=== PATIENT | female | born 2000 | race American Indian/Alaskan Native ===

== ENCOUNTER 2021-03-24 12:39 | Emergency (ER) | payer SELFPAY ==
[2021-03-24] MEDS ORDERED: IBUPROFEN 800 MG TAB PO ONE (13:10)
--- NOTE | 2021-03-24 13:20 | Emergency Department Report ---
ED General Adult HPI - General Chief complaint: Pain General Stated complaint: PAIN UNDER RIB CAGE X 2 WEEKS Time Seen by Provider: 03/24/21 13:02 Source: patient Mode of arrival: Ambulatory Limitations: No Limitations - History of Present Illness Initial comments: Patient presents for a 2-week history of upper abdominal pain and lower chest pain. This is bilateral and across the midline. It has been present for the last couple of weeks. He states that the pain seems to wax and wane but then states that she is not really sure if it goes away. She believes that may be she just learned to ignore it. It is an aching pain. It is sharp with inspiration and coughing. She states that she does not feel short of breath. When lying on her left side, she feels better. Pain does not change with food. It is not exertional. She has no pain or swelling in the legs. There is no history of recent travel or trauma. She has no GI or complaints. She does not feel the pain into her back. - Related Data Previous Rx's Medication Instructions Recorded Last Taken Type Ibuprofen [Motrin 800 MG tab] 800 mg PO Q8HR PRN #30 tablet 03/24/21 Unknown Rx Allergies Allergy/AdvReac Type Severity Reaction Status Date / Time No Known Allergies Allergy Verified 03/24/21 12:47 ED Review of Systems ROS: Stated complaint: PAIN UNDER RIB CAGE X 2 WEEKS Other details as noted in HPI Comment: All other systems reviewed and negative Constitutional: denies: fever Eyes: denies: vision change ENT: denies: throat pain Respiratory: denies: cough Cardiovascular: as per HPI Endocrine: denies: unexplained weight loss Gastrointestinal: as per HPI Genitourinary: denies: dysuria Musculoskeletal: denies: back pain Skin: denies: rash Neurological: denies: headache Hematological/Lymphatic: denies: easy bruising ED Past Medical Hx - Past Medical History Previous Medical History?: No - Family History Family history: no significant - Medications Home Medications: Home Medications Medication Instructions Recorded Confirmed Last Taken Type Ibuprofen [Motrin 800 MG tab] 800 mg PO Q8HR PRN #30 tablet 03/24/21 Unknown Rx ED Physical Exam - General Limitations: No Limitations, Other ( Pulse ox was noted and normal. She is not hypoxic.) General appearance: alert, in no apparent distress - Head Head exam: Present: atraumatic, normocephalic, normal inspection - Eye Eye exam: Present: normal appearance, EOMI. Absent: scleral icterus - ENT ENT exam: Present: normal exam, normal orophraynx, normal external ear exam - Neck Neck exam: Present: normal inspection. Absent: meningismus - Respiratory Respiratory exam: Present: normal lung sounds bilaterally, chest wall tenderness ( In the epigastric and bilateral lower rib areas), other ( pain is reproduced with compression of the rib cage). Absent: respiratory distress - Cardiovascular Cardiovascular Exam: Present: regular rate, normal rhythm - GI/Abdominal GI/Abdominal exam: Present: soft, tenderness ( epigastric and mild). Absent: distended, guarding, rebound - Extremities Exam Extremities exam: Present: normal capillary refill. Absent: calf tenderness - Back Exam Back exam: Absent: CVA tenderness (R), CVA tenderness (L) - Neurological Exam Neurological exam: Present: alert, oriented X3, CN II-XII intact, normal gait. Absent: motor sensory deficit - Psychiatric Psychiatric exam: Present: normal affect, normal mood - Skin Skin exam: Present: warm, dry ED Course Vital Signs 03/24/21 03/24/21 03/24/21 13:15 13:42 13:43 Temperature 98.8 F 98.0 F Pulse Rate 60 60 Respiratory 16 12 12 Rate Blood Pressure 117/59 108/62 [Right] O2 Sat by Pulse 100 100 100 Oximetry - Reevaluation(s) Reevaluation #1: 03/24/21 13:19 chest x-ray and analgesics were ordered. Reevaluation #2: 03/24/21 13:55 X-ray was reviewed. Patient was discharged. ED Medical Decision Making - Radiology Data Radiology results: report reviewed - Medical Decision Making Patient presents with upper abdominal pain and lower chest pain. This clearly is reproducible with palpation and compression. She does not have isolated right upper quadrant tenderness that would suggest biliary colic. Pain is not postprandial. She does not have adventitious breath sounds or pneumonia radiographically. Patient does not have recent travel or injury. She is not tachycardic. I do not believe this represents PE. She certainly could have an ulcer, but the pain is not worse on an empty stomach. Regardless, she does not have risk factors for ACS. She will be treated symptomatically and referred for outpatient evaluation. Critical Care Time: No Critical care attestation.: If time is entered above; I have spent that time in minutes in the direct care of this critically ill patient, excluding procedure time. ED Disposition Clinical Impression: Upper abdominal pain, Chest wall pain Disposition: HOME / SELF CARE / HOMELESS Is pt being admited?: No Condition: Stable Instructions: Nonspecific Chest Pain, Adult, Abdominal Pain, Adult, [id number], Pain Without a Known Cause Additional Instructions: Have a bland diet. Try ice, try heat. Drink plenty of fluids. Return for problems. Prescriptions: Ibuprofen [Motrin 800 MG tab] 800 mg PO Q8HR PRN #30 tablet PRN Reason: Pain, Moderate (4-6) Referrals: PRIMARY CAREMD [Referring] - 3-5 Days RUI GARCIA MD [Staff Physician] - 3-5 Days
--- NOTE | 2021-03-24 13:48 | XRay Report ---
CHEST 2 VIEWS INDICATION / CLINICAL INFORMATION: chest pain. COMPARISON: None available. FINDINGS: SUPPORT DEVICES: None. HEART / MEDIASTINUM: No significant abnormality. LUNGS / PLEURA: No significant pulmonary or pleural abnormality. No pneumothorax. ADDITIONAL FINDINGS: No significant additional findings. IMPRESSION: 1. No acute findings. Signer Name: Jesus Marsh MD Signed: 03/24/2021 1:44 PM Workstation Name: [id number]
[2021-03-24 14:07] VITALS: BP 110/71
== END 2021-03-24 14:56 | disposition home or self-care (01) ==
LOC: ED 12:39
DX: R10.13 Epigastric pain (principal); R10.11 Right upper quadrant pain; R07.89 Other chest pain; Z79.899 Other long term (current) drug therapy
CPT/HCPCS: 71046; 99283